=== PATIENT | female | born 1975 | race Two or more races ===

== ENCOUNTER 2021-09-22 11:39 | Day surgery (SDC) | payer OTHER | END 2021-09-22 20:15 | disposition home or self-care (01) | LOC: U 11:39 → CIR.AMB 11:39 | PROVIDERS: ATTEND Obstetrics & Gynecology Obstetrics | DX: N87.1 Moderate cervical dysplasia (principal); Z20.822 Contact with and (suspected) exposure to COVID-19 ==

== ENCOUNTER 2021-09-29 15:38 | Emergency (ER) | payer OTHER ==
[~2021-09-29] VITALS: Ht 157.5 cm; Wt 90.7 kg
[2021-09-29] MEDS ORDERED: IPRAT-ALBUT 0.5-3 ML IH (20:12)
[2021-09-29] MEDS ORDERED: LEVOFLOXACIN500 MG PO (20:13)
== END 2021-09-29 20:36 | disposition home or self-care (01) ==
LOC: ER 15:38
DX: J40 Bronchitis, not specified as acute or chronic (principal); B34.9 Viral infection, unspecified; E16.1 Other hypoglycemia; Z20.822 Contact with and (suspected) exposure to COVID-19